=== PATIENT | female | born 1995 | race African-American/Black ===

== ENCOUNTER 2017-12-01 11:50 | Emergency (ER) | payer MEDICAID ==
[~2017-12-01] VITALS: Ht 157.5 cm; Wt 56.7 kg
[2017-12-01 12:52] VITALS: BP 117/70
== END 2017-12-01 12:59 | disposition home or self-care (01) ==
LOC: ER 11:50
DX: K42.9 Umbilical hernia without obstruction or gangrene (principal); J02.9 Acute pharyngitis, unspecified

== ENCOUNTER 2018-07-28 15:06 | Emergency (ER) | payer SELFPAY ==
[~2018-07-28] VITALS: Ht 157.5 cm; Wt 54.4 kg
[2018-07-28 15:12] VITALS: BP 115/70
== END 2018-07-28 17:29 | disposition home or self-care (01) ==
LOC: ER 15:16
DX: L01.00 Impetigo, unspecified (principal); B99.9 Unspecified infectious disease

== ENCOUNTER 2019-05-22 13:14 | Emergency (ER) | payer SELFPAY ==
[~2019-05-22] VITALS: Ht 157.5 cm; Wt 52.2 kg
[2019-05-22 13:36] VITALS: BP 130/59
[2019-05-22 14:10] LABS: Basophils # (auto) 0.1 uL; Basophils % (auto) 0.6 % (0.0-2.0); Eosinophils # (auto) 0.1 uL; Eosinophils % (auto) 1.5 % (0.0-7.0); Hemoglobin 12.7 g/dL (12.2-16.2); Lymphocytes # (auto) 2.7 uL; Lymphocytes % (auto) 28.2 % (10.0-50.0); Mean Corpuscular Hemoglobin 27.1 pg (28.0-32.0); Mean Corpuscular Hgb Conc. 32.6 g/dL (32.0-36.0); Mean Corpuscular Volume 83.3 fL (80.0-100.0); Monocytes # (auto) 0.8 uL; Monocytes % (auto) 8.7 % (0.0-12.0); Neutrophils # (auto) 5.8 uL; Platelet Count (auto) 307 10^3/uL (140-450); Red Blood Cells 4.68 10^6/uL (4.0-5.20); Red Cell Distribution Width 13.4 % (11.8-14.3); White Blood Cell 9.5 10^3/uL (4.4-10.8)
[2019-05-22 14:22] LABS: Urine Bacteria NONE SEEN /hpf (None Seen); Urine Blood 1+ /uL (Negative); Urine Mucus FEW (None Seen); Urine Specific Gravity 1.032 (1.001-1.035); Urine WBC 8 /hpf (0 - 5)
[2019-05-22 14:29] LABS: Albumin 3.7 g/dL (3.4-5.0); BUN/Creatinine Ratio 14.5; Calcium 8.7 mg/dL (8.5-10.1)
[2019-05-22 14:40] LABS: Bilirubin, Total 0.4 mg/dL (0.2-1.0); Total Protein 6.9 g/dL (6.4-8.2)
== END 2019-05-22 22:37 | disposition left against medical advice (07) ==
LOC: ER 13:14
DX: R11.2 Nausea with vomiting, unspecified (principal); R19.7 Diarrhea, unspecified; Z53.21 Procedure and treatment not carried out due to patient leaving prior to being seen by health care provider
CPT/HCPCS: 36415; 80053; 81001; 85025

== ENCOUNTER 2019-05-23 08:51 | Emergency (ER) | payer SELFPAY ==
[~2019-05-23] VITALS: Ht 160 cm; Wt 68.0 kg
[2019-05-23 09:05] VITALS: BP 116/65
== END 2019-05-23 10:15 | disposition home or self-care (01) ==
LOC: ER 08:55
DX: N39.0 Urinary tract infection, site not specified (principal); Z32.01 Encounter for pregnancy test, result positive

== ENCOUNTER 2021-02-20 14:52 | Emergency (ER) | payer SELFPAY ==
[~2021-02-20] VITALS: Ht 157.5 cm; Wt 56.7 kg
[2021-02-20 16:19] LABS: Urine Bacteria NONE SEEN /hpf (None Seen); Urine Blood Negative /uL (Negative); Urine Hyaline Cast FEW /lpf (0 - 2); Urine Mucus FEW (None Seen); Urine Specific Gravity 1.035 (1.001-1.035); Urine WBC 24 /hpf (0 - 5)
[2021-02-20 16:20] LABS: Basophils # (auto) 0.1 10 ^3/uL (0-0.2); Eosinophils # (auto) 0.2 10 ^3/uL (0-0.8)
[2021-02-20 16:23] LABS: Basophils % (auto) 0.7 % (0.0-2.0); Hematocrit 38.2 % (36.0-46.0); Hemoglobin 12.6 g/dL (12.2-16.2); Lymphocytes # (auto) 2.5 10 ^3/uL (0.4-5.4); Lymphocytes % (auto) 14.7 % (10.0-50.0); Mean Corpuscular Hgb Conc. 32.9 g/dL (32.0-36.0); Monocytes # (auto) 0.9 10 ^3/uL (0-1.3); Monocytes % (auto) 5.6 % (0.0-12.0); Neutrophils # (auto) 13.2 10 ^3/uL (1.6-8.6); Nucleated Red Blood Cells % 0.1 %; Platelet Count (auto) 386 10^3/uL (140-450); Red Blood Cells 4.83 10^6/uL (4.0-5.20); Red Cell Distribution Width 15.7 % (11.8-14.3); White Blood Cell 16.9 10^3/uL (4.4-10.8)
[2021-02-20 16:29] LABS: Albumin 3.9 g/dL (3.4-5.0); BUN/Creatinine Ratio 13.3; Calcium 9.1 mg/dL (8.5-10.1); Potassium 4.2 mmol/L (3.5-5.1)
[2021-02-20 16:31] LABS: Bilirubin, Total 0.5 mg/dL (0.2-1.0); Total Protein 7.7 g/dL (6.4-8.2)
[2021-02-20 20:05] VITALS: BP 127/84
== END 2021-02-21 23:08 | disposition home or self-care (01) ==
LOC: ER 14:54
DX: O03.9 Complete or unspecified spontaneous abortion without complication (principal); O23.41 Unspecified infection of urinary tract in pregnancy, first trimester; O34.81 Maternal care for other abnormalities of pelvic organs, first trimester; N83.292 Other ovarian cyst, left side; Z98.890 Other specified postprocedural states; Z3A.01 Less than 8 weeks gestation of pregnancy
CPT/HCPCS: 36415; 76801; 76817; 80053; 81001; 81025; 84702; 85025

== ENCOUNTER 2024-07-24 11:04 | Emergency (ER) | payer SELFPAY ==
[~2024-07-24] VITALS: Ht 157.5 cm; Wt 55.0 kg
--- NOTE | 2024-07-24 11:17 | ED.PDOC ---
PRESIDENT AND CEO HPI Comments 29 year old female presents to the ED with chief complain of abdominal di scomfort. Patient reports that she is currently 3 months and has been experiencing abdominal discomfort with associated abnormal stool for the past few days. Patient relays that her LMP was in April. Patient notes she is . Patient denies any N/V/D, dizziness, headache, fever, chills, melena, or dysuria. Chief Complaint: Abdominal Pain Time Seen by MD: 11:14 Reviewed Notes: Nurses Notes, Medications, Allergies Allergies: Coded Allergies: NO KNOWN ALLERGIES (Unverified , 12/01/17) Home Meds Active Scripts Cephalexin (KEFLEX CAPSULE) 250 Mg Cp, 250 MG PO QID for 7 Days, #28 BOTTLE Prov:TERESO BATES MD 07/24/24 Information Source: Patient Mode of Arrival: Ambulatory Timing: Days Prehospital treatment: None Severity: Moderate Vaginal Discharge: None Vaginal Lesions: None Vaginal Mass: None Associated Signs and Symptoms: Abdominal Pain Past Medical History PAST MEDICAL HISTORY: Denies Surgical History: FAMILY SUPPORT SPECIALIST History: No Pertinent FAMILY SUPPORT SPECIALIST History 4 Para 3 Family History Family History: Unknown Social History Smoker: Non-Smoker Alcohol: Denies ETOH Use Drugs: Denies Drug Use Lives In: Home Constitutional: denies: chills, diaphoresis, fatigue, fever, malaise, sweats, weakness, others EENTM: denies: blurred vision, double vision, ear bleeding, ear discharge, ear drainage, ear pain, ear ringing, eye pain, eye redness, hearing loss, mouth pain, mouth swelling, nasal discharge, nose bleeding, nose congestion, nose pain, photophobia, tearing, throat pain, throat swelling, voice changes, others Respiratory: denies: cough, hemoptysis, orthopnea, SOB at rest, shortness of breath, SOB with excertion, stridor, wheezing, others Cardiovascular: denies: chest pain, dizzy spells, diaphoresis, Dyspnea on exertion, edema, irregular heart beat, left arm pain, lightheadedness, palpitations, PND, syncope, others Gastrointestinal: reports: abdominal pain; denies: abdomen distended, blood streaked bowels, constipated, diarrhea, dysphagia, difficulty swallowing, hematemesis, melena, nausea, poor appetite, poor fluid intake, rectal bleeding, rectal pain, vomiting, others Genitourinary: reports: ; denies: abnormal vagina bleeding, burning, dyspareunia, dysuria, flank pain, frequency, hematuria, incontinence, pain, vagina discharge, urgency, others Neurological: denies: dizziness, fainting, headache, left sided numbness, left sided weakness, numbness, paresthesia, pre-existing deficit, right sided numbness, right sided weakness, seizure, speech problems, tingling, tremors, weakness, others Musculoskeletal: denies: back pain, gout, joint pain, joint swelling, muscle pain, muscle stiffness, neck pain, others Integumetry: denies: bruises, change in color, change in hair/nails, dryness, laceration, lesions, lumps, rash, wounds, others Allergic/Immunocompromised: denies: Difficulty Healing, Frequent Infections, Hives, Itching, others Hematologic/Lymphatic: denies: anemia, blood clots, easy bleeding, easy bruising, swollen glands, others Endocrine: denies: excessive hunger, excessive sweating, excessive thirst, excessive urination, flushing, intolerance to cold, intolerance to heat, unexplained weight gain, unexplained weight loss, others Psychiatric: denies: anxiety, bipolar disorder, depression, hopeless, panic disorder, schizophrenia, sleepless, suicidal, others All Other Systems: Reviewed and Negative Physical Exam General Appearance: Moderate Distress, Normal HEENT: Normal ENT Inspection, PERRL/EOMI Neck: Full Range of Motion, Non-Tender, Normal, Normal Inspection Respiratory: Chest Non-Tender, Lungs Clear, No Accessory Muscle Use, No Respiratory Distress, Normal Breath Sounds Cardiovascular: No Edema, No JVD, No Murmur, No Gallop, Normal Peripheral Pulses, Regular Rate/Rhythm Breast Exam: Deferred Gastrointestinal: No Organomegaly, Non Tender, No Pulsatile Mass, Normal Bowel Sounds, Soft Genitalia: Deferred Pelvic: Deferred Rectal: Deferred Extremities: No calf tenderness, Normal capillary refill, Normal inspection, Normal range of motion, Non-tender, No pedal edema Musculoskeletal : Apperance: Normal Neurologic: Alert, clay artist II-XII nml as Tested, No Motor Deficits, Normal Affect, Normal Mood, No Sensory Deficits Cerebellar Function: Normal Reflexes: Normal Skin: Dry, Normal Color, Warm Peripheral Pulses: 3+ Radial (R), 3+ Radial (L) Lymphatic: No Adenopathy Was a procedure done? Was a procedure done?: No Differential Diagnosis (FAMILY SUPPORT SPECIALIST) Vaginal Bleeding: - Complete, - Incomplete, - Inevitable, - Missed, - Threatened X-Ray, Labs, Meds, VS Vital Signs Date Time Temp Pulse Resp B/P (MAP) Pulse Ox O2 Delivery O2 Flow Rate FiO2 07/24/24 11:10 98.3 86 16 142/75 (97) 100 Lab Test 07/24/24 11:53 07/24/24 11:10 Range/Units Beta HCG, Quantitative Pending Urine Color Yellow Yellow Urine Clarity Clear Clear Urine pH 6.5 5.0-9.0 Urine Specific [place] 1.039 H 1.001-1.035 Urine Protein 1+ H Negative Urine Ketones Trace Negative Urine Blood Negative Negative /uL Urine Nitrite Negative Negative Urine Bilirubin Negative Negative Urine Urobilinogen 3 H Negative mg/dL Urine Leukocyte Esterase 2+ Negative /uL Urine RBC 8 0 - 4 /hpf Urine WBC 13 0 - 5 /hpf Urine Squamous Epithelial Cells Few <5 /hpf Urine Bacteria None seen None Seen /hpf Urine Mucus Few None Seen Urine Glucose Normal Normal mg/dL Patient alert. Complaining of abdominal discomfort. Vitals stable. Answering questions. Denies vaginal bleeding pain She is . Ultrasound reveals normal . Urinalysis shows UTI. Was given prescription of Keflex antibiotic. Reviewed her previous history. Explained to the patient about treatment plan. Was told to follow up with her primary care physician. Was told to come back if there is any problem. OB US: FINDINGS: The uterus measures 9.3 x 8.1 x 5.9 cm. There is a gestational sac within the uterus with appropriate surrounding decidual and a mean sac diameter of 5.4 cm. Within the gestational sac a yolk sac and pole are identified. The crown- rump length measures 3.5 cm which corresponds to a gestational age of 10 weeks 3 days. heart activity is demonstrated with heart tone of 168 BPM. The right ovary measures 3.0 x 1.9 x 1.1 cm. The left ovary measures 2.5 x 2.4 x 2.5 cm. There is likely a 1.7 cm corpus luteal cyst in the left ovary. Both ovaries otherwise appear within normal limits. There is no evidence of an adnexal mass. There is no free fluid within the cul-de-sac. IMPRESSION: 1. Single viable intrauterine with gestational age of 10 weeks 3 days based on crown-rump length measurement. Images Reviewed?: Images reviewed and evaluated by me Time of 1ST Reevaluation: 12:14 Reevaluation 1ST: Unchanged Patient Education/Counseling: Diagnosis, Treatment Family Education/Counseling: No Family Present Departure 1 Departure Time of Disposition: 12:06 Impression: Primary Impression: Normal Qualified Codes: Z34.90 - Encounter for supervision of normal , unspecified, unspecified trimester Additional Impression: UTI (urinary tract infection) Qualified Codes: N30.01 - Acute cystitis with hematuria Disposition: HOME / SELF CARE / HOMELESS Condition: Good e-Prescriptions Cephalexin (KEFLEX CAPSULE) 250 Mg Cp 250 MG PO QID for 7 Days, #28 BOTTLE Prov: TERESO BATES MD 07/24/24 Discharged With: Self Critical Care Note Critical Care Time?: Yes (45 min-critical care time only) Stability Stability form required: No Heart Score Heart Score: Heart Score Response (Comments) Value History N/A 0 EKG N/A 0 Age N/A 0 Risk Factors N/A 0 Troponin N/A 0 Total 0 I personally scribed for TERESO BATES MD ([email or web address]) on 07/24/24 at 11:17. Electronically submitted by Karl Monge ([email or web address]). I personally scribed for TERESO BATES MD ([email or web address]) on 07/24/24 at 12:32. Electronically submitted by Karl Monge ([email or web address]). TERESO BATES MD Jul 24, 2024 11:17
[2024-07-24 11:39] LABS: Urine Bacteria None Seen /hpf (None Seen)
[2024-07-24 11:51] LABS: Urine Blood Negative /uL (Negative); Urine Clarity Clear (Clear); Urine Color Yellow (Yellow); Urine Mucus FEW (None Seen); Urine Protein, UAD 1+ (Negative); Urine Specific Gravity 1.039 (1.001-1.035); Urine Urobilinogen 3 mg/dL (Negative); Urine WBC 13 /hpf (0 - 5); Urine pH 6.5 (5.0-9.0)
[2024-07-24] MEDS ORDERED: CEPH250C PO (12:07)
--- NOTE | 2024-07-24 12:09 | DVH ---
OB ULTRASOUND CLINICAL HISTORY: cramping TECHNIQUE: Transvaginal OB ultrasound. Comparison: None FINDINGS: The uterus measures 9.3 x 8.1 x 5.9 cm. There is a gestational sac within the uterus with appropriate surrounding decidual and a mean sac diameter of 5.4 cm. Within the gestational sac a yolk sac and fe rosalino pole are identified. The crown-rump length measures 3.5 cm which corresponds to a gestational age of 10 weeks 3 days. heart activity is demonstrated with heart tone of 168 BPM. The right ovary measures 3.0 x 1.9 x 1.1 cm. The left ovary measures 2.5 x 2.4 x 2.5 cm. There is lik dorothy a 1.7 cm corpus luteal cyst in the left ovary. Both ovaries otherwise appear within normal limits . There is no evidence of an adnexal mass. There is no free fluid within the cul-de-sac. IMPRESSION: 1. Single viable intrauterine with gestational age of 10 weeks 3 days based on crown-rump l ength measurement. HS:Y
[2024-07-24 12:50] VITALS: BP 119/75; PULSE 72; RESP 18; TEMP 98.4; O2SAT 99
== END 2024-07-24 12:50 | disposition home or self-care (01) ==
LOC: ER 11:04
DX: O23.41 Unspecified infection of urinary tract in pregnancy, first trimester (principal); R10.2 Pelvic and perineal pain; N39.0 Urinary tract infection, site not specified; Z3A.10 10 weeks gestation of pregnancy; Z98.890 Other specified postprocedural states
CPT/HCPCS: 36415; 76801; 81001; 84702